=== PATIENT | male | born 1980 | race Caucasian/White ===

== ENCOUNTER → 2017-08-22 | Outpatient (CLI) | payer OTHER ==
[~2017-08-22] MED LIST: CEPHALEXIN500 M1 PO; NO HOME MEDICATIONS
== END ==
LOC: COL.RAD 08:02
DX: R10.11 Right upper quadrant pain (principal)
CPT/HCPCS: A9537; J2805

== ENCOUNTER → 2018-05-12 | Outpatient (CLI) | payer OTHER | LOC: COL.RAD 07:01 | DX: K21.9 Gastro-esophageal reflux disease without esophagitis (principal); J02.9 Acute pharyngitis, unspecified; Z87.898 Personal history of other specified conditions | CPT/HCPCS: A9541 ==